=== PATIENT | male | born 1990 | race Two or more races ===

== ENCOUNTER 2020-04-03 15:09 | Emergency (ER) | payer MEDICAID ==
[~2020-04-03] VITALS: Ht 193 cm; Wt 90.0 kg
[2020-04-03] MEDS ORDERED: SODIUM CHLORIDE 0.9% 1,000ML IVBOLUS ONE (15:30)
[2020-04-03] MEDS ORDERED: SODIUM CHLORIDE FLUSH 10ML SYR IVF ONE (15:30)
[2020-04-03 15:50] LABS: MICROSCOPIC NOT IND
[2020-04-03 16:07] LABS: BASOPHILS # (AUTO) 0.02 x10^3/uL (0-0.1); BASOPHILS % (AUTO) 0 % (0-1); EOSINOPHILS # (AUTO) 0.19 x10^3/uL (0-0.4); EOSINOPHILS % (AUTO) 3 % (1-7); LYMPHOCYTES # (AUTO) 2.04 x10^3/uL (1-3.4); LYMPHOCYTES % (AUTO) 28 % (22-44); MD NO; MEAN CORPUSCULAR HEMOGLOBIN 29.9 pg (27.5-34.5); MEAN CORPUSCULAR HGB CONC 33.1 g/dL (33.2-36.2); MEAN CORPUSCULAR VOLUME 90.4 fL (81-97); MONOCYTES # (AUTO) 0.71 x10^3/uL (0.2-0.8); MONOCYTES % (AUTO) 10 % (2-9); NEUTROPHILS # (AUTO) 4.44 x10^3/uL (1.8-6.8); NEUTROPHILS % (AUTO) 60 % (42-75); PLATELET COUNT 298 x10^3/uL (130-400); RED BLOOD COUNT 4.35 x10^6/uL (4.38-5.82); RED CELL DISTRIBUTION WIDTH 14.4 % (9.4-14.8)
[2020-04-03 16:09] LABS: ANION GAP 4 mmol/L (5-15); CHLORIDE 108 mmol/L (98-107)
[2020-04-03 16:13] LABS: CALCIUM 8.9 mg/dL (8.5-10.1)
[2020-04-03 16:14] LABS: ALBUMIN 3.2 g/dL (3.4-5.0)
--- NOTE | 2020-04-03 16:29 | NUR ---
PT COMPLETED ORTHOSTATICS WITH STAFF ASSISTANCE. PROVIDED WITH FOOD AND WATER PER REQUEST. DENIES ANY FURTHER NEEDS AT THIS TIME, CALL LIGHT IN REACH. LAST OF FLUIDS CONTINUE INFUSING.
[2020-04-03 17:24] VITALS: BP 106/70
--- NOTE | 2020-04-03 17:24 | NUR ---
CARE FOR DC ONLY PROVIDED. PT LAYING ON BLESSINGRBRITTANY, NO ACUTE DISTRESS NOTED. IV DC'D WITH CANNULA INTACT. REVIEWED DC INSTRUCTIONS WITH PT. UNDERSTANDING VERBALIZED.
== END 2020-04-03 17:45 | disposition home or self-care (01) ==
LOC: ED 17:36
DX: R42 Dizziness and giddiness (principal); R53.1 Weakness
CPT/HCPCS: 36415; 80048; 81003; 82040; 85025; 93005; 96360; 99284; J7030

== ENCOUNTER 2020-04-18 02:55 | Emergency (ER) | payer SELFPAY ==
[~2020-04-18] VITALS: Ht 193 cm; Wt 89.6 kg
[2020-04-18 02:56] VITALS: BP 117/76
[2020-04-18 03:26] LABS: BASOPHILS # (AUTO) 0.05 x10^3/uL (0-0.1); BASOPHILS % (AUTO) 1 % (0-1); EOSINOPHILS # (AUTO) 0.29 x10^3/uL (0-0.4); EOSINOPHILS % (AUTO) 3 % (1-7); LYMPHOCYTES # (AUTO) 4.67 x10^3/uL (1-3.4); LYMPHOCYTES % (AUTO) 44 % (22-44); MD NO; MEAN CORPUSCULAR HEMOGLOBIN 29.5 pg (27.5-34.5); MEAN CORPUSCULAR HGB CONC 32.7 g/dL (33.2-36.2); MEAN CORPUSCULAR VOLUME 90.2 fL (81-97); MEAN PLATELET VOLUME 7.9 fL (7.4-10.4); MONOCYTES # (AUTO) 0.63 x10^3/uL (0.2-0.8); MONOCYTES % (AUTO) 6 % (2-9); NEUTROPHILS % (AUTO) 48 % (42-75); PLATELET COUNT 431 x10^3/uL (130-400)
[2020-04-18 03:30] LABS: ALANINE AMINOTRANSFERASE 19 U/L (12-78); ALBUMIN 3.8 g/dL (3.4-5.0); ANION GAP 9 mmol/L (5-15); CALCIUM 9.2 mg/dL (8.5-10.1); CHLORIDE 105 mmol/L (98-107); CREATININE 0.89 mg/dL (0.7-1.3)
[2020-04-18 03:33] LABS: ALKALINE PHOSPHATASE 61 U/L (45-117); BILIRUBIN,TOTAL 0.8 mg/dL (0.2-1.0); TOTAL PROTEIN 7.6 g/dL (6.4-8.2)
== END 2020-04-18 04:57 | disposition home or self-care (01) ==
LOC: ED 04:20
DX: K59.00 Constipation, unspecified (principal); E86.0 Dehydration; F15.10 Other stimulant abuse, uncomplicated; F17.200 Nicotine dependence, unspecified, uncomplicated; Z72.9 Problem related to lifestyle, unspecified
CPT/HCPCS: 36415; 74021; 80053; 85025; 99284

== ENCOUNTER 2020-04-28 20:52 | Emergency (ER) | payer SELFPAY ==
[~2020-04-28] VITALS: Ht 193 cm; Wt 94.0 kg
[2020-04-28] MEDS ORDERED: TRAZ50TA66 PO (20:59)
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
[2020-04-28] MEDS ORDERED: [UNRECOGNIZED DRUG - OTHER] IM (21:02)
--- NOTE | 2020-04-28 21:49 | NUR ---
PT SITTING UP IN GURNEY FIDGETING AROUND, NAD, VSS, NO CHANGE IN CONDITION, REQUESTING FOOD AND SNACKS, RN GOT PT FOOD FROM [facility] [facility]. WCTM. WAITING FOR LABS AT THIS TIME.
[2020-04-28 22:34] LABS: BASOPHILS # (AUTO) 0.04 x10^3/uL (0-0.1); BASOPHILS % (AUTO) 0 % (0-1); EOSINOPHILS # (AUTO) 0.26 x10^3/uL (0-0.4); EOSINOPHILS % (AUTO) 3 % (1-7); LYMPHOCYTES # (AUTO) 3.36 x10^3/uL (1-3.4); LYMPHOCYTES % (AUTO) 34 % (22-44); MD NO; MEAN CORPUSCULAR HEMOGLOBIN 29.3 pg (27.5-34.5); MEAN CORPUSCULAR HGB CONC 32.7 g/dL (33.2-36.2); MEAN CORPUSCULAR VOLUME 89.5 fL (81-97); MEAN PLATELET VOLUME 7.7 fL (7.4-10.4); MONOCYTES # (AUTO) 0.86 x10^3/uL (0.2-0.8); MONOCYTES % (AUTO) 9 % (2-9); NEUTROPHILS # (AUTO) 5.49 x10^3/uL (1.8-6.8); NEUTROPHILS % (AUTO) 55 % (42-75); PLATELET COUNT 384 x10^3/uL (130-400); RED BLOOD COUNT 4.58 x10^6/uL (4.38-5.82); RED CELL DISTRIBUTION WIDTH 14.6 % (9.4-14.8)
--- NOTE | 2020-04-28 22:40 | NUR ---
PT GIVEN WATER PER REQUEST, EKG COMPELTE, NAD, NO CHANGE IN CONDITION, DENIES NAUSEA AT THIS TIME. CALL LIGHT ON LAP. WCTM. WAITING FOR ADDITIONAL LAB RESULTS.
[2020-04-28 22:42] LABS: ALANINE AMINOTRANSFERASE 35 U/L (12-78); ALBUMIN 3.9 g/dL (3.4-5.0); ANION GAP 6 mmol/L (5-15); CALCIUM 8.8 mg/dL (8.5-10.1); CHLORIDE 107 mmol/L (98-107)
[2020-04-28 22:45] LABS: ALKALINE PHOSPHATASE 54 U/L (45-117); BILIRUBIN,TOTAL 1.4 mg/dL (0.2-1.0); CREATININE 0.81 mg/dL (0.7-1.3); TOTAL PROTEIN 7.1 g/dL (6.4-8.2)
[2020-04-28] MEDS ORDERED: IBUPROFEN 800 MG TABLET PO ONE (23:00)
--- NOTE | 2020-04-28 23:11 | NUR ---
PatienT given discharge instructions and they have confirmed that they understand the instructions. Patient ambulatory with steady gait. NAD, VSS, DENIES ADDITIONAL NEEDS OR QUESTIONS AT THIS TIME. NO PT BELONGINGS LEFT IN ROOM AT DE.
[2020-04-28 23:12] VITALS: BP 117/67
--- NOTE | 2020-04-28 23:15 | NUR ---
GIVEN TAXI VOUCHER PER REQUEST.
== END 2020-04-28 23:48 | disposition home or self-care (01) ==
LOC: ED 21:10
DX: R11.2 Nausea with vomiting, unspecified (principal); F10.129 Alcohol abuse with intoxication, unspecified; Z72.9 Problem related to lifestyle, unspecified; R42 Dizziness and giddiness; R94.31 Abnormal electrocardiogram [ECG] [EKG]; F17.200 Nicotine dependence, unspecified, uncomplicated; Y90.9 Presence of alcohol in blood, level not specified
CPT/HCPCS: 36415; 80053; 80307; 85025; 93005; 99284

== ENCOUNTER 2020-04-29 17:41 | Emergency (ER) | payer SELFPAY ==
[~2020-04-29] VITALS: Ht 193 cm; Wt 100.0 kg
[~2020-04-29 17:41] MED LIST: TRAZ50TA66 PO; [UNRECOGNIZED DRUG - OTHER] IM
[2020-04-29 17:48] VITALS: BP 112/65
--- NOTE | 2020-04-29 17:53 | NUR ---
Pt sts no SI/HI, BIBA for medication refill of reisperidone. Pt sts no hallucinations when speaking with this RN.
--- NOTE | 2020-04-29 18:55 | NUR ---
Report to John BLANCO.
--- NOTE | 2020-04-29 19:54 | NUR ---
PT D/C WITH D/C SUMMARY AND SCRIPTS. ALL QUESTIONS ANSWERED. PT PROVIDED WITH SNACKS PER REQUEST AND AMBULATES TO REGISTRATION DESK WITH STEADY GAIT FOR D/C HOME. PT DENIES ANY OTHER NEEDS PERTAINING TO THIS VISIT.
== END 2020-04-29 19:56 | disposition home or self-care (01) ==
LOC: ED 18:40
DX: F10.129 Alcohol abuse with intoxication, unspecified (principal); Z76.0 Encounter for issue of repeat prescription; Z72.9 Problem related to lifestyle, unspecified; F17.210 Nicotine dependence, cigarettes, uncomplicated; Y90.9 Presence of alcohol in blood, level not specified
CPT/HCPCS: 99283; 99406

== ENCOUNTER 2020-05-04 03:07 | Emergency (ER) | payer MEDICAID ==
[~2020-05-04] VITALS: Ht 193 cm; Wt 81.8 kg
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
[2020-05-04 03:42] LABS: BASOPHILS # (AUTO) 0.03 x10^3/uL (0-0.1); BASOPHILS % (AUTO) 0 % (0-1); EOSINOPHILS % (AUTO) 4 % (1-7); LYMPHOCYTES # (AUTO) 3.81 x10^3/uL (1-3.4); LYMPHOCYTES % (AUTO) 48 % (22-44); MD NO; MEAN CORPUSCULAR HGB CONC 32.3 g/dL (33.2-36.2); MEAN CORPUSCULAR VOLUME 89.9 fL (81-97); MEAN PLATELET VOLUME 7.2 fL (7.4-10.4); MONOCYTES # (AUTO) 0.66 x10^3/uL (0.2-0.8); MONOCYTES % (AUTO) 8 % (2-9); NEUTROPHILS # (AUTO) 3.11 x10^3/uL (1.8-6.8); NEUTROPHILS % (AUTO) 39 % (42-75); PLATELET COUNT 340 x10^3/uL (130-400); RED BLOOD COUNT 4.38 x10^6/uL (4.38-5.82); RED CELL DISTRIBUTION WIDTH 14.3 % (9.4-14.8)
--- NOTE | 2020-05-04 03:49 | NUR ---
PATIENT PLACED IN HOSPITAL GOWN, URINE COLLECTED, SAFTEY MEASURES IN PLACE, ALL BELONGINGS (2 BLACK BAGS, 1 RED BAG, AND 2 PATIENT BELONGING BAGS) TAKEN TO LOCKER, AND PATIENT GIVEN SOME FOOD, WATER, AND WARM BLANKETS.
[2020-05-04 03:53] LABS: ALBUMIN 3.7 g/dL (3.4-5.0); ANION GAP 3 mmol/L (5-15); CALCIUM 8.5 mg/dL (8.5-10.1); CHLORIDE 108 mmol/L (98-107); CREATININE 0.83 mg/dL (0.7-1.3)
[2020-05-04 03:54] LABS: SALICYLATE LEVEL < 1.7 mg/dL (2.8-20.0)
[2020-05-04 04:08] LABS: AMPHETAMINE SCREEN, URINE Positive (Negative); BARBITURATE SCREEN, URINE Negative (Negative); BENZODIAZEPINE SCREEN, URINE Negative (Negative); CANNABINOID SCREEN, URINE Negative (Negative); COCAINE SCREEN, URINE Negative (Negative); METHADONE SCREEN, URINE Negative (Negative); OPIATE SCREEN, URINE Negative (Negative)
--- NOTE | 2020-05-04 05:23 | NUR ---
TELEPSYCH MONITOR PLACED BY BEDSIDE. PATIENT UNDERSTANDS THE PROVIDER WILL CALL THEM, PATIENT HAS NO QUESTIONS
--- NOTE | 2020-05-04 05:35 | NUR ---
PATIENT CURRENTLY SPEAKING WITH PROVIDER ON TELEPSYCH MONITOR
--- NOTE | 2020-05-04 05:36 | NUR ---
PRECEPTOR RN: PT SPEAKING WITH TELEPSYCH PHYSICIAN AT THIS TIME
--- NOTE | 2020-05-04 06:21 | NUR ---
PATIENT RESTING IN BED, AWAITING TELEPSYCH CONSULT FAX.
--- NOTE | 2020-05-04 06:54 | NUR ---
TELEPSYCH REPORT STILL NOT RECEIVED, CONTACTED AND THEY STATED THEY WILL SEND THE REPORT RIGHT AWAY.
--- NOTE | 2020-05-04 07:08 | NUR ---
RECEIVED REPORT FROM MARIANNE BLANCO AND ASSUMED CARE OF PT
--- NOTE | 2020-05-04 08:36 | NUR ---
RUSTAM RN: MEAL PROVIDED TO PATIENT
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
--- NOTE | 2020-05-04 08:53 | NUR ---
internist: PT AMBULATORY WITH STEADY GAIT TO ROOM 02
--- NOTE | 2020-05-04 09:20 | NUR ---
REPORT TO ANDREINA BLANCO
--- NOTE | 2020-05-04 09:30 | NUR ---
REPORT RECEIVED FROM BELLA PELLETIER, PT NOW IN ROOM 2. ASLEEP ON GURNEY, RESPS EVEN AND UNLABORED. ROOM SECURE. SITTER MONITORING FROM [facility].
--- NOTE | 2020-05-04 10:06 | NUR ---
HOSPITAL BED REQUESTED FROM CT TECHNOLOGIST.
--- NOTE | 2020-05-04 10:10 | NUR ---
Patient with self pay insurance. Packet faxed to [facility] and conformation received and placed with chart.
--- NOTE | 2020-05-04 10:33 | NUR ---
hospital bed received, no linens provided. housekeeping called to bring linens.
--- NOTE | 2020-05-04 10:41 | NUR ---
billy Agarwal at bedside for assessment.
--- NOTE | 2020-05-04 11:00 | NUR ---
SHEETS RECEIVED, BED DRESSED. PT MOVED ONTO HOSPITAL BED. SITTER MONITORING FROM [facility]. ROOM SECURE. PT HAS NO COMPLAINT.
[2020-05-04] MEDS ORDERED: RISPERIDONE PO (11:05)
--- NOTE | 2020-05-04 11:44 | NUR ---
Chandana lewis in ED - 05/04/20 at 1145 by EM MED REC REVIEWED, THIS RN NOTIFIED NASRA THOMAS OF NEED TO REVIEW. NASRA HAS REVIEWED AND STATES CURRENT MEDICATION REGIMEN IS APPORPRIATE.
--- NOTE | 2020-05-04 11:58 | NUR ---
PT SLEEPING ON HOSPITAL BED, RESPS EVEN AND UNLABORED. ROOM SECURE. SITTER MONITORING FROM [facility].
[2020-05-04] MEDS ORDERED: RISPERIDONE 1 MG TABLET PO ONE (12:00)
--- NOTE | 2020-05-04 12:15 | NUR ---
respiridal requested from pharmacy
--- NOTE | 2020-05-04 13:34 | NUR ---
SI MEAL TRAY PROVIDED.
--- NOTE | 2020-05-04 13:59 | NUR ---
NASRA THOMAS NOTIFIED MED REC HAS BEEN UPDATED, CHANGES REVIEWED BY NASRA, PER NASRA LOW DOSE RISPERIDAL APPROPRIATE FOR PATIENT WHO HAS BEEN RECEIVING INVEGA SHOTS OUTPATIENT.
[2020-05-04] MEDS ORDERED: RISPERIDONE 2 MG TABLET ONE (14:03)
--- NOTE | 2020-05-04 14:17 | NUR ---
PT MEDICATED PER EMAR, TOLERATED WELL. RESTING ON HOSPITAL BED, RESPS EVEN AND UNLABORED, NO COMPLAINT AT THIS TIME. SITTER MONITORING FROM [facility]. ROOM SECURE.
--- NOTE | 2020-05-04 14:49 | NUR ---
PT SLEEPING ON HOSPITAL BED, RESPS EVEN AND UNLABORED, NO COMPLAINT AT THIS TIME. SITTER MONITORING FROM [facility]. ROOM SECURE.
--- NOTE | 2020-05-04 14:58 | NUR ---
REPORT GIVEN TO BELLA FRAGOSO WHO IS ASSUMING CARE AT THIS TIME.
--- NOTE | 2020-05-04 15:24 | NUR ---
PT RESTING CALMLY IN BED WITH EYES CLOSED. SITTER AT DOOR FOR FREQUENT OBS. NO STATED NEEDS BY PT.
--- NOTE | 2020-05-04 16:48 | NUR ---
PT RESTING IN BED WITH EYES CLOSED. NO STATED NEEDS FROM PT AT THIS TIME. WILL CONTINUE TO MONITOR.
--- NOTE | 2020-05-04 17:22 | NUR ---
PT RESTING CALMLY IN BED WITH EYES CLOSED. NO STATED NEEDS AT THIS TIME. SITTER AT DOOR FOR OBS.
--- NOTE | 2020-05-04 18:10 | NUR ---
PT GIVEN MEAL TRAY. NO STATED NEEDS AT THIS TIME. SITTER AT DOOR FOR OBS.
--- NOTE | 2020-05-04 19:10 | NUR ---
[facility] PATIENT IN SECURE ROOM IN SIGHT OF SITTER. ALL SAFETY MEASURES IN PLACE.
--- NOTE | 2020-05-04 19:11 | NUR ---
BEDSIDE REPORT TO MARIANNE BLANCO
--- NOTE | 2020-05-04 22:30 | NUR ---
PATIENT RESTING COMFORTABLY IN BED. VITALS TAKEN. SAFETY MEASURES IN PLACE, IN LINE OF SIGHT OF SITTER
--- NOTE | 2020-05-05 00:50 | NUR ---
PATIENT RESTING COMFORTABLY IN BED. NO S/S OF DISTRESS, IN LINE OF SIGHT OF SITTER
--- NOTE | 2020-05-05 01:51 | NUR ---
PATIENT GIVEN SOME JUICE. NO S/S OF DISTRESS, PATIENT STATES NO OTHER NEEDS. SITTER IN LINE OF SIGHT
--- NOTE | 2020-05-05 02:59 | NUR ---
PATIENT RESTING COMFORTABLY IN BED. NO S/S OF DISTRESS, RESPIRATIONS EVEN/UNLABORED. IN LINE OF SIGHT OF SITTER
--- NOTE | 2020-05-05 04:25 | NUR ---
PATIENT SLEEPING IN BED. NO S/S OF DISTRESS, RESPIRATIONS REGULAR/UNLABORED. IN LINE OF SIGHT OF SITTER.
--- NOTE | 2020-05-05 05:39 | NUR ---
PATIENT ASLEEP, NO S/S OF DISTRESS, RESPIRATIONS REGULAR/UNLABORED. SITTER IN HAS PATIENT IN LINE OF SITE
--- NOTE | 2020-05-05 06:42 | NUR ---
PATIENT SLEEPING, NO S/S OF DISTRESS. RESPIRATIONS UNLABORED. SITTER IN VIEW OF PATIENT
--- NOTE | 2020-05-05 07:02 | NUR ---
report received from rose marie zhao.
--- NOTE | 2020-05-05 07:06 | NUR ---
diet tray ordered at this time.
--- NOTE | 2020-05-05 08:01 | NUR ---
pt still sleeping at this time. resps even and unlabored. sitter monitoring from hallway for safety. room remains secure.
--- NOTE | 2020-05-05 08:29 | NUR ---
DIET TRAY PROVIDED AT THIS TIME. PT AMB TO BR WITH STEADY GAIT.
--- NOTE | 2020-05-05 08:51 | NUR ---
ORANGE JUICE PROVIDED PER REQUEST AT THIS TIME.
--- NOTE | 2020-05-05 09:40 | NUR ---
PT RESTING IN HOSPITAL BED. PT'S AOX4. RESPS EVEN AND UNLABORED. SITTER MONITORING FROM [facility]. ROOM REMAINS SECURE.
[2020-05-05 09:41] VITALS: BP 119/72
--- NOTE | 2020-05-05 09:55 | NUR ---
SUPPLIER DEVELOPMENT MANAGER AT BEDSIDE AT THIS TIME.
[2020-05-05] MEDS ORDERED: RISPERIDONE 1 MG TABLET PO ONE (10:00)
[2020-05-05] MEDS ORDERED: RISPERIDONE 2 MG TABLET ONE (10:07)
--- NOTE | 2020-05-05 10:13 | NUR ---
PT MEDICATED PER EMAR. PT TOLERATED WELL.
--- NOTE | 2020-05-05 10:50 | NUR ---
pt still sleeping at this time. resps even and unlabored. sitter monitoring from hallway for safety. room remains secure.
--- NOTE | 2020-05-05 11:11 | NUR ---
DIET TRAY ORDERED AT THIS TIME.
--- NOTE | 2020-05-05 11:30 | NUR ---
ORANGE JUICE PROVIDED PER REQUEST AT THIS TIME.
--- NOTE | 2020-05-05 11:49 | NUR ---
PT NOW WITH INSURANCE. FAXED TO [facility] AND [facility]
--- NOTE | 2020-05-05 11:58 | NUR ---
diet tray provided at this time.
--- NOTE | 2020-05-05 12:48 | NUR ---
pt sleeping at this time. resps even and unlabored. sitter monitoring from hallway for safety. room remains secure.
--- NOTE | 2020-05-05 14:01 | NUR ---
pt sleeping at this time. resps even and unlabored. sitter monitoring from hallway for safety. room remains secure.
--- NOTE | 2020-05-05 14:31 | NUR ---
call center team leader at bedside at this time.
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
--- NOTE | 2020-05-05 16:11 | NUR ---
SNACKS GIVEN PER REQUEST AT THIS TIME.
--- NOTE | 2020-05-05 16:38 | NUR ---
Patient ambulatory to exit with steady gait with transport staff.
== END 2020-05-05 16:39 ==
LOC: ED 05:24
DX: R45.851 Suicidal ideations (principal); F20.9 Schizophrenia, unspecified
CPT/HCPCS: 36415; 80048; 80307; 82040; 85025; 99285

== ENCOUNTER 2020-06-09 21:56 | Emergency (ER) | payer MEDICAID ==
[~2020-06-09] VITALS: Ht 182.9 cm; Wt 85.0 kg
[~2020-06-09 21:56] MED LIST changes: +RISPERIDONE PO
--- NOTE | 2020-06-09 22:21 | NUR ---
RIKKI RASMUSSEN, PT STATES HE IS HOMELESS AND HAS BEEN OFF OF HIS PSYCH MEDS FOR A FEW DAYS BECAUSE THEY WERE STOLEN. HE STATES THAT HE IS NOW HEARING VOICES THAT ARE TELLING HIM TO HURT HIMSELF. PT STATES HE DOESNT FEEL SUICIDAL WHEN HE IS ON HIS MEDS. PT WITH NO SPECIFIC PLAN. PT CALM AND COOPERATIVE. DRINK AND SNACKS PROVIDED TO PT PER HIS REQUEST.
--- NOTE | 2020-06-09 22:48 | NUR ---
ALL PT BELONGINGS PLACED INTO 1 BELONGINGS BAG AND IN LOCKER.
[2020-06-09 22:51] LABS: AMPHETAMINE SCREEN, URINE Negative (Negative); BARBITURATE SCREEN, URINE Negative (Negative); BENZODIAZEPINE SCREEN, URINE Negative (Negative); CANNABINOID SCREEN, URINE Negative (Negative); COCAINE SCREEN, URINE Negative (Negative); METHADONE SCREEN, URINE Negative (Negative); OPIATE SCREEN, URINE Negative (Negative)
[2020-06-09] MEDS ORDERED: RISPERIDONE 1 MG TABLET PO ONE (23:00)
[2020-06-09 23:18] LABS: BASOPHILS # (AUTO) 0.04 x10^3/uL (0-0.1); BASOPHILS % (AUTO) 1 % (0-1); EOSINOPHILS # (AUTO) 0.21 x10^3/uL (0-0.4); EOSINOPHILS % (AUTO) 3 % (1-7); LYMPHOCYTES # (AUTO) 3.84 x10^3/uL (1-3.4); LYMPHOCYTES % (AUTO) 47 % (22-44); MD NO; MEAN CORPUSCULAR HEMOGLOBIN 29.2 pg (27.5-34.5); MEAN CORPUSCULAR HGB CONC 32.1 g/dL (33.2-36.2); MEAN PLATELET VOLUME 7.6 fL (7.4-10.4); MONOCYTES # (AUTO) 0.62 x10^3/uL (0.2-0.8); MONOCYTES % (AUTO) 8 % (2-9); NEUTROPHILS # (AUTO) 3.51 x10^3/uL (1.8-6.8); NEUTROPHILS % (AUTO) 43 % (42-75); PLATELET COUNT 372 x10^3/uL (130-400); RED BLOOD COUNT 4.58 x10^6/uL (4.38-5.82); RED CELL DISTRIBUTION WIDTH 15.4 % (9.4-14.8)
[2020-06-09 23:22] LABS: ALBUMIN 3.8 g/dL (3.4-5.0); ANION GAP 7 mmol/L (5-15); CALCIUM 8.7 mg/dL (8.5-10.1); CHLORIDE 109 mmol/L (98-107); SALICYLATE LEVEL 2.4 mg/dL (2.8-20.0)
[2020-06-09 23:24] LABS: ALANINE AMINOTRANSFERASE 21 U/L (12-78); ALKALINE PHOSPHATASE 63 U/L (45-117); BILIRUBIN,TOTAL 0.3 mg/dL (0.2-1.0); CREATININE 0.87 mg/dL (0.7-1.3); TOTAL PROTEIN 7.3 g/dL (6.4-8.2)
--- NOTE | 2020-06-10 00:49 | NUR ---
PT PROVIDED MEAL FROM [employer].
--- NOTE | 2020-06-10 00:55 | NUR ---
REPORT FROM SHREE BLANCO. PT EATING WITH NO NEEDS AT THIS TIME.
--- NOTE | 2020-06-10 02:27 | NUR ---
PT SLEEPING IN NAD. EVEN RISE AND FALL OF CHEST OBSERVED. PT HAS NO NEEDS AT THIS TIME. ROOM SECURED.
--- NOTE | 2020-06-10 04:17 | NUR ---
PT PLACED ON HOSPITAL BED. PT GIVEN SPRITE. PT HAS NO OTHER NEEDS. CALL LIGHT IN REACH. ROOM SECURED.
--- NOTE | 2020-06-10 04:33 | NUR ---
MT: PSYCH PACKET SENT TO [facility], [place], AND [facility].
--- NOTE | 2020-06-10 05:15 | NUR ---
report to kaylin zhao. pt moved to er room 2
--- NOTE | 2020-06-10 05:24 | NUR ---
MT: [facility] IS ACCEPTING PT FOR 0800. ACCEPTING DOCTOR IS DR. TIWARI.
--- NOTE | 2020-06-10 05:28 | NUR ---
REPORT TO RN AT [facility]. ALL QUESTIONS ANSWERED.
--- NOTE | 2020-06-10 05:41 | NUR ---
BELONGINGS MOVED FROM ROOM 40 BIN TO ROOM 2 BIN
--- NOTE | 2020-06-10 06:10 | NUR ---
tp: faxed packet to [facility] for transport
--- NOTE | 2020-06-10 06:21 | NUR ---
PT RESTING IN BED WITH SITTER A DOOR, PT ROOM SI SECURE. PT DENIED ANY WANTS OR NEEDS AT THIS TIME. RN WILL CONTINUE TO MONITOR PT
--- NOTE | 2020-06-10 06:53 | NUR ---
BEDSIDE REPORT RECEIVED FROM AMANDA PETERSON RN.
--- NOTE | 2020-06-10 07:00 | NUR ---
PT RESTING IN BED WITH EYES CLOSED AND SITTER A DOOR, PT ROOM SI SECURE. PT DENIED ANY WANTS OR NEEDS AT THIS TIME. COMFORT MEASURES PROVIDED. WILL CONTINUE TO MONITOR PT.
[2020-06-10 07:56] VITALS: BP 113/71
--- NOTE | 2020-06-10 08:01 | NUR ---
[facility] ARRIVED TO TRANSPORT PT TO [facility]. PT LEFT WITH ALL BELONGINGS.
== END 2020-06-10 08:17 ==
LOC: ED 22:33
DX: R45.851 Suicidal ideations (principal); F20.9 Schizophrenia, unspecified; Z91.14 Patient's other noncompliance with medication regimen
CPT/HCPCS: 36415; 80053; 80307; 85025; 99285

== ENCOUNTER 2020-07-08 11:32 | Emergency (ER) | payer MEDICAID ==
[~2020-07-08] VITALS: Ht 193 cm; Wt 91.0 kg
[2020-07-08 11:34] VITALS: BP 108/70
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
--- NOTE | 2020-07-08 11:40 | NUR ---
RAILROAD CARMAN NOTE: SITTER REQUESTED FROM [facility]. DIETARY COOK MONITORING PT FOR SAFETY AT THIS TIME.
[2020-07-08] MEDS ORDERED: RISPERIDONE 1 MG TABLET PO ONE (12:00)
--- NOTE | 2020-07-08 12:48 | NUR ---
BREAK RN: REQUESTED RISPERDAL FROM PHARMACY. SITTER AT DOOR, ROOM SECURED.
--- NOTE | 2020-07-08 12:49 | NUR ---
BREAK RN: MEAL REQUESTED
--- NOTE | 2020-07-08 13:16 | NUR ---
PT UPRIGHT ON STARR MORRIS. PT EATING MEAL PROVIDED. DENIES ANY NEEDS AT THIS TIME. SAFETY AGUILERA DOWN. AWAITING D/C.
--- NOTE | 2020-07-08 13:48 | NUR ---
Patient given taxi voucher (to [facility]), discharge instructions and Rx, they have confirmed that they understand the instructions. All personal belongings returned to pt from locker bin. Patient ambulatory with steady gait.
== END 2020-07-08 13:58 ==
LOC: ED 13:20
DX: F15.20 Other stimulant dependence, uncomplicated (principal); R44.0 Auditory hallucinations; F17.200 Nicotine dependence, unspecified, uncomplicated; Z72.9 Problem related to lifestyle, unspecified; Z76.0 Encounter for issue of repeat prescription
CPT/HCPCS: 99285

== ENCOUNTER 2020-07-13 15:17 | Emergency (ER) | payer MEDICAID ==
[~2020-07-13] VITALS: Ht 137.2 cm; Wt 90.0 kg
[2020-07-13 15:23] VITALS: BP 106/63
[2020-07-13] MEDS ORDERED: RISPERIDONE 1 MG TABLET PO SCH (16:00)
[2020-07-13] MEDS ORDERED: RISPERIDONE 2 MG TABLET ONE (16:18)
--- NOTE | 2020-07-13 16:27 | NUR ---
risperidone 2mg tabs available in [facility], cleared with pharmacy to break tablet in half. 1.5 tablets given in er
--- NOTE | 2020-07-13 17:02 | NUR ---
UNABLE TO CHART MED, EMAR OPEN UNDER MINA DAVIS. AND UNABLE TO LOCATE PERSON. PT GIVEN 3MG OF RISPERIDONE
== END 2020-07-13 17:04 | disposition home or self-care (01) ==
LOC: ED 16:02
DX: F20.89 Other schizophrenia (principal); Z72.9 Problem related to lifestyle, unspecified; Z91.14 Patient's other noncompliance with medication regimen; Z59.0 Homelessness
CPT/HCPCS: 99284

== ENCOUNTER 2020-09-26 13:53 | Emergency (ER) | payer SELFPAY ==
[~2020-09-26] VITALS: Ht 185.4 cm; Wt 80.0 kg
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
[2020-09-26 15:00] LABS: BASOPHILS % (AUTO) 1 % (0-1); EOSINOPHILS % (AUTO) 2 % (1-7); LYMPHOCYTES % (AUTO) 33 % (22-44); MEAN CORPUSCULAR HEMOGLOBIN 30.4 pg (27.5-34.5); MEAN CORPUSCULAR HGB CONC 34.2 g/dL (33.2-36.2); MEAN PLATELET VOLUME 7.5 fL (7.4-10.4); MONOCYTES % (AUTO) 9 % (2-9); NEUTROPHILS % (AUTO) 55 % (42-75); PLATELET COUNT 334 x10^3/uL (130-400); RED BLOOD COUNT 4.73 x10^6/uL (4.38-5.82); RED CELL DISTRIBUTION WIDTH 14.3 % (9.4-14.8)
[2020-09-26 15:01] LABS: MD NO
[2020-09-26 15:12] LABS: ANION GAP 5 mmol/L (5-15); CALCIUM 8.7 mg/dL (8.5-10.1); CHLORIDE 107 mmol/L (98-107); CREATININE 0.94 mg/dL (0.7-1.3); SALICYLATE LEVEL < 1.7 mg/dL (2.8-20.0)
[2020-09-26 15:41] LABS: AMPHETAMINE SCREEN, URINE Positive (Negative); BARBITURATE SCREEN, URINE Negative (Negative); BENZODIAZEPINE SCREEN, URINE Negative (Negative); CANNABINOID SCREEN, URINE Positive (Negative); COCAINE SCREEN, URINE Negative (Negative); METHADONE SCREEN, URINE Negative (Negative); OPIATE SCREEN, URINE Negative (Negative)
[2020-09-26] MEDS ORDERED: RISPERIDONE 1 MG TABLET PO ONE (16:00)
--- NOTE | 2020-09-26 16:32 | NUR ---
Medication sent for. Pt resting in JOEY painting.
[2020-09-26 17:21] VITALS: BP 128/89
== END 2020-09-26 17:23 | disposition home or self-care (01) ==
LOC: ED 14:56
DX: F17.200 Nicotine dependence, unspecified, uncomplicated (principal)
CPT/HCPCS: 36415; 80048; 80299; 80307; 80320; 80329; 82040; 85025; 99284; G0480

== ENCOUNTER 2021-02-19 12:53 | Emergency (ER) | payer MEDICAID ==
[~2021-02-19] VITALS: Ht 193 cm; Wt 91.8 kg
[2021-02-19 13:03] VITALS: BP 108/76
--- NOTE | 2021-02-19 13:56 | NUR ---
STITCHER OPERATOR: PT TO ROOM FROM LOBBY
[2021-02-19] MEDS ORDERED: IBUPROFEN 800 MG TABLET ONE (14:22)
[2021-02-19] MEDS ORDERED: IBUPROFEN 800 MG TABLET PO ONE (14:30)
== END 2021-02-19 14:31 | disposition home or self-care (01) ==
LOC: ED 14:02
DX: R51.9 Headache, unspecified (principal)
CPT/HCPCS: 99283

== ENCOUNTER 2021-03-02 05:55 | Emergency (ER) | payer MEDICAID ==
[~2021-03-02] VITALS: Ht 193 cm; Wt 90.4 kg
--- NOTE | 2021-03-02 07:21 | NUR ---
sack maker: pt from lobby to room 24
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
--- NOTE | 2021-03-02 07:53 | NUR ---
PT TO RADIOLOGY FOR XRAYS
--- NOTE | 2021-03-02 07:59 | NUR ---
PT BACK FROM RADIOLOGY FOR LOOK AT HEAD AND NECK.
--- NOTE | 2021-03-02 08:01 | NUR ---
PT REQUESTING CRACKERS AND ORANGE JUICE. LET KNOWN THAT THE PROVIDER AND RESULTS TYPICALLY HAVE TO GET BACK BEFORE ANYTHING IS GIVEN.
[2021-03-02 09:08] LABS: MICROSCOPIC NOT IND
[2021-03-02 09:59] VITALS: BP 140/74
--- NOTE | 2021-03-02 10:07 | NUR ---
Patient given discharge instructions and they have confirmed that they understand the instructions. Patient ambulatory with steady gait. No quesitons at time of discharge.
== END 2021-03-02 10:09 | disposition home or self-care (01) ==
LOC: ED 07:33
DX: S16.1XXA Strain of muscle, fascia and tendon at neck level, initial encounter (principal); S09.90XA Unspecified injury of head, initial encounter; R30.0 Dysuria; W01.0XXA Fall on same level from slipping, tripping and stumbling without subsequent striking against object, initial encounter; Y93.89 Activity, other specified; Y92.830 Public park as the place of occurrence of the external cause; Y99.8 Other external cause status
CPT/HCPCS: 70450; 72125; 81003; 87491; 87591; 99285

== ENCOUNTER 2021-04-15 02:14 | Emergency (ER) | payer MEDICAID ==
[~2021-04-15] VITALS: Ht 193 cm; Wt 98.2 kg
[2021-04-15 02:34] VITALS: BP 115/70
--- NOTE | 2021-04-15 02:41 | NUR ---
PT STATES HE IS OUT OF HIS RISPERIDOL PILLS, PT STATES HE HAS BEEN OUT FOR A 3 OR 4 DAYS NOW AND CANNOT GET IN TO SEE HIS DOCTOR UNTIL MONDAY
== END 2021-04-15 03:23 | disposition home or self-care (01) ==
LOC: ED 03:05
DX: F20.9 Schizophrenia, unspecified (principal); Z76.0 Encounter for issue of repeat prescription; F17.200 Nicotine dependence, unspecified, uncomplicated
CPT/HCPCS: 99281

== ENCOUNTER 2021-05-27 14:39 | Emergency (ER) | payer MEDICAID, OTHER ==
[~2021-05-27] VITALS: Ht 193 cm; Wt 97.9 kg
[2021-05-27 14:45] VITALS: BP 129/74
--- NOTE | 2021-05-27 14:59 | NUR ---
FOR FULL REG
== END 2021-05-27 15:13 | disposition home or self-care (01) ==
LOC: ED 14:52
DX: B34.9 Viral infection, unspecified (principal); Z20.822 Contact with and (suspected) exposure to COVID-19; M79.10 Myalgia, unspecified site; R50.9 Fever, unspecified; F17.200 Nicotine dependence, unspecified, uncomplicated
CPT/HCPCS: 99283; U0003; U0005